=== PATIENT | male | born 1960 | race Caucasian/White ===

== ENCOUNTER → 2025-02-17 | Outpatient (CLI) | payer OTHER ==
[~2025-02-17] MED LIST: AMOCLA875 PO; AZIT250 PO; CEPH500 PO; CLIN150 PO; COLC.6 PO; CYCL10 PO; ERYT500 PO; FEBU40TA; HYDACE5 PO; HYDGUAL120 PO; IBUP800; IBUP800 PO; LEVLIO2; LEVSOD50; NAPR500 PO; OXYACE5T PO; OXYACE7.5T PO; OXYC10TA19 PO; PRED20 PO; ROSU5
== END ==
LOC: LAB SHORT 08:00 → LAB 08:00
DX: B35.1 Tinea unguium (principal); L60.2 Onychogryphosis
CPT/HCPCS: 88305; 88312